=== PATIENT | male | born 1955 | race Caucasian/White ===

== ENCOUNTER 2016-07-05 07:07 | Day surgery (SDC) | payer OTHER ==
[~2016-07-05] VITALS: Ht 177.8 cm; Wt 81.6 kg
[~2016-07-05 07:07] MED LIST: ACETAMINOPHEN500 M1 PO; ARTHROTEC 501 TAB.EC PO; ARTHROTEC EC 71 EACH PO; BACTRIM DS TABL1 TAB PO; BAYER CHEWABLE81 MG PO; BENADRYL25 MG PO; BENICAR40 MG PO; CYCLOBENZAPRINE10 MG; CYCLOBENZAPRINE10 MG PO; DEXILANT60 MG; DEXILANT60 MG PO; DILAUDID2 MG PO; DILAUDID4 MG PO; DULCOLAX10 MG/SUPP; FLEXERIL10 MG PO; HYDROCODONE-APA1 TAB PO; K-DUR20 MEQ PO; LAMISIL250 MG PO; LEVAQUIN500 MG PO; LOPRESSOR50 MG PO; MIRALAX17 GM PO; NEOSPORIN OINTM15 GM TP; NEOSPORIN PLUS TP; NORCO 10/325 TA1 TA1 PO; ONDANSETRON4 MG/2 M3 IV; PERCOCET 10/3251 TA1; PERCOCET 10/3251 TA1 PO; PHENERGAN25 M1 PO; PHENERGAN6.25 MG/5; SALINE FLUSH10 ML IV; SENOKOT-S TABLE1 TAB PO; TYLOX 5/500 CAP1 CAP PO; XOPENEX 0.0.63 MG/3 UPD; ZOFRAN4 MG PO; ZYRTEC10 MG PO; [UNRECOGNIZED DRUG - MIXTURE]
[2016-07-05 08:25] VITALS: BP 156/85; Ht 177.8 cm; Wt 81.6 kg
[2016-07-05 08:28] LABS: BASOPHILS 0.6 % (0-2); EOSINOPHILS 3.8 % (0-7); HEMATOCRIT 38.2 % (42.0-54.0); HEMOGLOBIN 11.3 g/dL (13.5-17.5); IMMATURE GRANULOCYTES 0.4 % (0-5); LYMPHOCYTES 25.6 % (15-50); MCH 23.9 pg (26.0-34.0); MCHC 29.6 g/dL (31.0-37.0); MCV 80.9 fL (80.0-100.0); MONOCYTES 8.8 % (2-11); NEUTROPHILS 60.8 % (40-80); PLATELET COUNT 497 10x3/uL (130-400); RBC 4.72 10x6/uL (4.20-6.10); RDW 17.2 % (11.5-14.5); WBC 7.2 10x3/uL (4.8-10.8)
[2016-07-05 08:30] LABS: CALCIUM 8.5 mg/dL (8.5-10.1); CARBON DIOXIDE 25.2 mmol/L (21.0-32.0); CREATININE - SERUM 1.7 mg/dL (0.6-1.3); POTASSIUM - SERUM 4.2 mmol/L (3.5-5.1)
[2016-07-05] MEDS ORDERED: HYDROCODONE-APA1 TAB PO (11:44)
--- NOTE | 2016-07-05 14:03 | NUR ---
1403--PT VOIDS, IV BISMARK DU RN
--- NOTE | 2016-07-05 15:02 | NUR ---
1445--DISCHARGE INSTRUCTIONS GIVEN, PT VERBALIZES UNDERSTANDING. PT OFF UNIT VIA [facility]. FLORIAN CALLAWAY
--- NOTE | 2016-07-06 14:34 | OP ---
PATIENT NAME: JED SUAREZ MEDICAL RECORD: [id number] :57 LOCATION:[facility] ADMISSION DATE: SURGEON: ESDRAS LIMON MD DATE OF OPERATION: 07/05/2016 PREOPERATIVE DIAGNOSES: 1. Recurrent right inguinal hernia. 2. Peripheral vascular disease. 3. Hypertension. POSTOPERATIVE DIAGNOSES: 1. Recurrent right inguinal hernia. 2. Peripheral vascular disease. 3. Hypertension. PROCEDURE: Right inguinal hernia repair with medium PHS mesh. SURGEON: Esdras Limon MD REPORT OF PROCEDURE: The patient's right groin was prepped and draped in sterile fashion. An oblique incision was made above the inguinal ligament. Electrocautery was used to dissect through the subcutaneous tissues down to the external oblique fascia. This fascia was opened up using electrocautery down to the external ring. Once inside, I could feel a previously placed piece of mesh. We dissected the surrounding tissues off of this mesh and was eventually able to free up the patient's spermatic cord. A loop was placed around the cord and it was pulled to the side. We were eventually able to dissect down an indirect hernia defect that was containing small bowel. In order to free this up, we actually got into the hernia sac, was eventually able to place this back into the abdominal cavity. The patient's preperitoneal space of Retzius was then opened up through an opening in the inguinal floor and a medium PHS mesh was inserted. This mesh was sutured down on all sides using multiple interrupted 0 Vicryls. The mesh appeared to lie in good position. I did not see any evidence of an ilioinguinal nerve. The patient's groin was then irrigated out with normal saline and care was taken to make sure there was no sign of any bleeding. The external oblique fascia was then closed with running 2-0 Vicryl, Rabia's was closed with interrupted 3-0 Vicryls and the skin was closed with running subcutaneous 5-0 Monocryl. A 10 mL of 0.25% Marcaine with epinephrine were infused into the surrounding tissues and the wound was dressed appropriately. COMPLICATIONS: None. CONDITION: Stable. ANESTHESIA: General endotracheal and local. BLOOD LOSS: Minimal. TRANSINT:[id number] Voice Confirmation ID: [id number] DOCUMENT ID: [id number] OPERATIVE REPORT [id number] JED SUAREZ ESDRAS GALARZA MD at 1434 CC: BRANDEN VILLALTA DO [id number] DICTATION DATE: 07/05/16 1147 COP BREAKER: 07/06/16 0030 [facility] 07/05/16 [id number] [place] [address]
== END 2016-07-05 14:45 | disposition home or self-care (01) ==
LOC: D.OPS 07:07 → D.PAN 07:45 → D.OPS 07:45 → D.PAN 09:30 → D.OPS 09:30
PROVIDERS: Surgery
DX: K40.91 Unilateral inguinal hernia, without obstruction or gangrene, recurrent (principal); I73.9 Peripheral vascular disease, unspecified; I10 Essential (primary) hypertension; D17.79 Benign lipomatous neoplasm of other sites